=== PATIENT | female | born 1950 | race Caucasian/White ===

== ENCOUNTER 2017-01-24 08:04 | Emergency (ER) | payer MEDICARE, OTHER ==
[2017-01-24] MEDS ORDERED: Triple Antibiotic Oint 1 GM Packet ONE (08:48)
--- NOTE | 2017-01-24 09:07 | RAD ---
RIGHT FOOT 3 VIEWS: HISTORY: Right foot pain. FINDINGS/IMPRESSION: There is a nondisplaced fracture involving the base of the 5th metatarsal. POS: [facility]
--- NOTE | 2017-01-24 09:08 | RAD ---
THREE VIEWS RIGHT ANKLE: COMPARISON: 06/21/15. HISTORY: Fall this morning with right ankle pain. FINDINGS: Three views of the right ankle show no evidence of acute fracture or dislocation. No degenerative c hanges were seen. No soft tissue swelling is present. IMPRESSION: Unremarkable exam. POS: [facility]
== END 2017-01-24 09:55 | disposition home or self-care (01) ==
LOC: NAV ERS 08:04
DX: S93.401A Sprain of unspecified ligament of right ankle, initial encounter (principal); Z79.899 Other long term (current) drug therapy; W01.0XXA Fall on same level from slipping, tripping and stumbling without subsequent striking against object, initial encounter

== ENCOUNTER 2020-06-25 09:47 | Outpatient (CLI) | payer MEDICARE | END 2020-06-25 09:48 | disposition home or self-care (01) | LOC: NAV RAD 09:47 | PROVIDERS: ATTEND Family Medicine | DX: M70.52 Other bursitis of knee, left knee (principal); M17.12 Unilateral primary osteoarthritis, left knee ==

== ENCOUNTER 2021-02-04 08:45 | Emergency (ER) | payer OTHER, MEDICARE | END 2021-02-04 10:22 | disposition home or self-care (01) | LOC: NAV ERS 08:45 | DX: S92.352A Displaced fracture of fifth metatarsal bone, left foot, initial encounter for closed fracture (principal); W01.0XXA Fall on same level from slipping, tripping and stumbling without subsequent striking against object, initial encounter ==

== ENCOUNTER 2021-04-30 19:04 | Emergency (ER) | payer MEDICARE ==
[2021-04-30] MEDS ORDERED: Ibuprofen 200 MG TAB ONE (20:26)
== END 2021-04-30 20:30 | disposition home or self-care (01) ==
LOC: NAV ERS 19:04
DX: S42.202A Unspecified fracture of upper end of left humerus, initial encounter for closed fracture (principal); W01.0XXA Fall on same level from slipping, tripping and stumbling without subsequent striking against object, initial encounter; I10 Essential (primary) hypertension; Z79.899 Other long term (current) drug therapy

== ENCOUNTER 2022-12-01 07:20 | Outpatient (CLI) | payer MEDICARE | END 2022-12-01 07:21 | disposition home or self-care (01) | LOC: NAV RAD 07:20 | PROVIDERS: ATTEND Family Medicine | DX: M41.125 Adolescent idiopathic scoliosis, thoracolumbar region (principal); R07.81 Pleurodynia | CPT/HCPCS: 72081 ==

== ENCOUNTER 2023-03-20 08:47 | Outpatient (CLI) | payer MEDICARE | END 2023-03-20 08:48 | disposition home or self-care (01) | LOC: NAV RAD 08:47 | PROVIDERS: ATTEND Student in an Organized Health Care Education/Training Program | DX: R05.9 Cough, unspecified (principal) | CPT/HCPCS: 71046 ==

== ENCOUNTER 2023-03-23 10:49 | Outpatient (CLI) | payer MEDICARE | END 2023-03-23 10:50 | disposition home or self-care (01) | LOC: NAV RAD 10:49 | PROVIDERS: ATTEND Student in an Organized Health Care Education/Training Program | DX: J92.9 Pleural plaque without asbestos (principal) | CPT/HCPCS: 71250 ==